=== PATIENT | female | born 1965 | race Caucasian/White ===

== ENCOUNTER → 2016-12-20 | Outpatient (REF) | payer BC ==
[2016-12-23 00:07] LABS: Lyme Disease IgG/IgM Antibodie <0.91 ISR (0.00-0.90); Lyme Disease IgM Ab Quantitati <0.80 index (0.00-0.79)
== END ==
LOC: M SFHCLERA 14:58
PROVIDERS: ATTEND Nurse Practitioner Family
DX: L53.9 Erythematous condition, unspecified (principal)

== ENCOUNTER → 2017-12-02 | Outpatient (CLI) | payer BC | LOC: M WHC 09:47 | DX: Z12.31 Encounter for screening mammogram for malignant neoplasm of breast (principal) | CPT/HCPCS: 77067 ==

== ENCOUNTER → 2017-12-02 | Outpatient (REF) | payer BC | LOC: M SFHCWAGY 09:46 | DX: Z12.4 Encounter for screening for malignant neoplasm of cervix (principal) | CPT/HCPCS: G0123 ==

== ENCOUNTER → 2019-01-30 | Outpatient (CLI) | payer BC ==
--- NOTE | 2019-01-30 16:49 | REPMRS ---
Patient History The patient states she had a clinical breast exam in 01/2019. Family history of prostate cancer at age 50 or over in father, prostate cancer under age 50 in brother, breast cancer at age 50 or over in paternal aunt, breast cancer at age 50 or over in paternal aunt, ovarian cancer at age 25 in paternal aunt. Benign excisional biopsy of the left breast, 1990. Taking hormonal contraceptives for 16 years. Digital Woman Screen Mammo: January 30, 2019 - Exam #: [id number] Bilateral CC and MLO view(s) were taken. Technologist: Tiffanie Mcintosh, Technologist Prior study comparison: December 02, 2017, digital woman screen mammo performed at [facility]. FINDINGS: There are scattered fibroglandular densities. There has been no change in the appearance of the mammogram from the prior studies. There is a mild amount of scattered fibroglandular density which is fairly symmetric. There is no interval development of dominant mass, architectural distortion, or grouped microcalcification suggestive of malignancy. 3-D tomosynthesis shows no additional findings. Assessment: BI-RADS/ACR category 1 mammogram. Negative Mammogram. Recommendation Routine screening mammogram of both breasts in 1 year (for women over age 40). This patient's Lifetime Breast Cancer Risk is estimated at 13.5 %. This mammogram was interpreted with the aid of an FDA-approved computer-aided dectection system. Electronically Signed By: Buster Lawson MD 01/30/19 [id number]
== END ==
LOC: M WHC 14:36
PROVIDERS: ATTEND Nurse Practitioner Women's Health
DX: Z12.31 Encounter for screening mammogram for malignant neoplasm of breast (principal); Z15.09 Genetic susceptibility to other malignant neoplasm

== ENCOUNTER → 2019-04-24 | Outpatient (REF) | payer BC | LOC: M SFHCWAGY 15:02 | PROVIDERS: ATTEND Nurse Practitioner Women's Health | DX: Z15.09 Genetic susceptibility to other malignant neoplasm (principal); Z80.41 Family history of malignant neoplasm of ovary ==

== ENCOUNTER → 2019-04-24 | Outpatient (CLI) | payer BC ==
--- NOTE | 2019-04-24 16:53 | REP ---
Transvaginal pelvic sonography: History: Genetic susceptibility to malignant neoplasm. Family history of ovarian carcinoma. Findings: Uterine dimensions are normal at 6.8 x 2.4 x 3.9 cm. Endometrial echo 0.3 cm thick. No focal uterine mass is seen. Normal ovaries are observed bilaterally. Right ovarian dimensions are 1.8 x 2.1 x 1.7 cm. Left ovary measures 1.9 x 1.0 x 2.4 cm. No free fluid is seen. Doppler flow is normal in both ovaries. Resistive indices are 0.67 on the right and 0.53 on the left. Impression: No abnormality noted.
== END ==
LOC: M WHC 15:01
PROVIDERS: ATTEND Nurse Practitioner Women's Health
DX: Z15.09 Genetic susceptibility to other malignant neoplasm (principal); Z80.41 Family history of malignant neoplasm of ovary

== ENCOUNTER → 2020-04-29 | Outpatient (CLI) | payer BC ==
--- NOTE | 2020-04-29 15:48 | REPMRS ---
Patient History The patient states she had a clinical breast exam in April 2020. Family history of prostate cancer at age 50 or over in father, prostate cancer under age 50 in brother, breast cancer at age 50 or over in paternal aunt, breast cancer at age 50 or over in paternal aunt, ovarian cancer at age 25 in paternal aunt. Benign excisional biopsy of the left breast, 1990. Taking hormonal contraceptives for 17 years. Digital Woman Screen Mammo: April 29, 2020 - Exam #: [id number] Bilateral CC and MLO view(s) were taken. Technologist: RT Juancarlos Prior study comparison: January 30, 2019, bilateral digital woman screen mammo performed at [facility]. December 02, 2017, digital woman screen mammo performed at [facility]. FINDINGS: There are scattered fibroglandular densities. The Volpara volumetric breast density category is:B. There has been no change in the appearance of the mammogram from the prior studies. There is a mild amount of scattered fibroglandular density which is fairly symmetric. There is no interval development of dominant mass, architectural distortion, or grouped microcalcification suggestive of malignancy. 3-D tomosynthesis shows no additional findings. Assessment: BI-RADS/ACR category 1 mammogram. Negative Mammogram. Recommendation Routine screening mammogram of both breasts in 1 year (for women over age 40). This patient's Lifetime Breast Cancer Risk is estimated at 13.2 %. This mammogram was interpreted with the aid of an FDA-approved computer-aided dectection system. Electronically Signed By: Buster Lawson MD 04/29/20 [id number]
== END ==
LOC: M WHC 14:43
PROVIDERS: ATTEND Nurse Practitioner Women's Health
DX: Z12.31 Encounter for screening mammogram for malignant neoplasm of breast (principal); Z79.3 Long term (current) use of hormonal contraceptives

== ENCOUNTER → 2020-07-23 | Outpatient (REF) | payer BC ==
[2020-07-23 13:45] LABS: FOLLICLE STIMULATING HORMONE 82.2 mIU/mL; LUTEINIZING HORMONE 40.7 mIU/mL
== END ==
LOC: M PLALAB 10:42
PROVIDERS: ATTEND Nurse Practitioner Women's Health
DX: N95.1 Menopausal and female climacteric states (principal)

== ENCOUNTER 2021-01-25 12:47 | Emergency (ER) | payer BC ==
[~2021-01-25] VITALS: Ht 160 cm; Wt 68.2 kg
[2021-01-25] MEDS ORDERED: DRAM1CHW PO (13:01)
[2021-01-25] MEDS ORDERED: PRES10CA2 PO (13:01)
[2021-01-25 13:55] LABS: BASO # 0.1 10^3/uL (0.0-0.2); BASO % 0.8 % (0.0-1.0); EOS # 0.1 10^3/uL (0.0-0.5); EOS % 0.8 % (0.0-3.0); HEMATOCRIT 41.7 % (36.0-47.0); HEMOGLOBIN 13.8 g/dl (12.0-15.5); LYMPH # 2.2 10^3/uL (1.5-5.0); LYMPH % 25.4 % (24.0-44.0); MEAN CORPUSCULAR HEMOGLOBIN 31.6 pg (27.0-33.0); MEAN CORPUSCULAR HGB CONC 33.1 g/dl (32.0-36.5); MEAN CORPUSCULAR VOLUME 95.4 fl (80.0-96.0); MONO # 0.8 10^3/uL (0.0-0.8); MONO % 9.3 % (2.0-8.0); NEUTROPHILS # 5.4 10^3/uL (1.5-8.5); NEUTROPHILS % 63.5 % (36.0-66.0); PLATELET COUNT, AUTOMATED 271 10^3/uL (150-450); RED BLOOD COUNT 4.37 10^6/uL (4.00-5.40); WHITE BLOOD COUNT 8.5 10^3/uL (4.0-10.0)
--- NOTE | 2021-01-25 14:18 | REP ---
INDICATION: Syncope COMPARISON: None. TECHNIQUE: Axial noncontrast images from the skull base to the vertex with coronal reformations. This CT examination was performed using the following dose reduction techniques: Automated exposure control, adjustment of mA and/or kv according to the patient's size, and use of iterative reconstruction technique. FINDINGS: The ventricles, sulci, and cisterns are normal in position and appearance. Hurt-white differentiation is maintained. No acute intracranial hemorrhage, mass/mass effect, pathology or trauma/injury. No evidence for acute infarction. No extra-axial fluid collection. Calvarium is intact. Paranasal sinuses and mastoid air cells are clear. IMPRESSION: Normal noncontrast head CT. No evidence for acute intracranial pathology or trauma/injury. <Electronically signed by Kalia Booker > 01/25/21 [id number]
[2021-01-25 14:30] LABS: BLOOD UREA NITROGEN 11 MG/DL (7-18); CALCIUM LEVEL 8.7 MG/DL (8.5-10.1); CARBON DIOXIDE LEVEL 27 MEQ/L (21-32); CHLORIDE LEVEL 109 MEQ/L (98-107); CREATININE FOR GFR 0.58 MG/DL (0.55-1.30); GLOMERULAR FILTRATION RATE > 60.0 (>51); GLUCOSE, FASTING 90 MG/DL (70-100); SODIUM LEVEL 144 MEQ/L (136-145); THYROID STIMULATING HORMONE 0.976 uIU/ML (0.358-3.740)
[2021-01-25 14:31] LABS: POTASSIUM SERUM 4.7 MEQ/L (3.5-5.1)
[2021-01-25] MEDS ORDERED: MECLIZINE 25 MG TABLET PO ONE (15:40)
--- NOTE | 2021-01-25 17:10 | REPVR ---
PROCEDURE INFORMATION: Exam: MRA Head Without Contrast; Arteriography Exam date and time: 01/25/2021 4:01 PM Age: 56 years old Clinical indication: Dizziness and giddiness; Patient HX: Nausea dizziness, vomitting, >3weeks that comes and goes, nki. No priors sent to [facility] TECHNIQUE: Imaging protocol: Magnetic resonance angiography head without contrast. Exam focused on the arteries. COMPARISON: CT Head without contrast 01/25/2021 2:04 PM FINDINGS: ANTERIOR CIRCULATION: Right internal carotid artery: Intracranial segment is patent with no significant stenosis. No aneurysm. Right middle cerebral artery: No occlusion or significant stenosis. No aneurysm. Right anterior cerebral artery: No occlusion or significant stenosis. No aneurysm. Left internal carotid artery: Intracranial segment is patent with no significant stenosis. No aneurysm. Left middle cerebral artery: No occlusion or significant stenosis. No aneurysm. Left anterior cerebral artery: No occlusion or significant stenosis. No aneurysm. POSTERIOR CIRCULATION: Right vertebral artery: No occlusion or significant stenosis. No aneurysm. Left vertebral artery: No occlusion or significant stenosis. No aneurysm. Basilar artery: No occlusion or significant stenosis. No aneurysm. Right posterior cerebral artery: No occlusion or significant stenosis. No aneurysm. Left posterior cerebral artery: No occlusion or significant stenosis. No aneurysm. IMPRESSION: No stenosis or occlusion. Electronically signed by: Lissa Ambrose On 01/25/2021 17:10:16 PM
--- NOTE | 2021-01-25 17:17 | REPVR ---
PROCEDURE INFORMATION: Exam: MR Head Without Contrast Exam date and time: 01/25/2021 4:01 PM Age: 56 years old Clinical indication: Patient HX: Nausea dizziness, vomiting, >3weeks that comes and goes, nki. No priors sent to [facility] TECHNIQUE: Imaging protocol: MR of the head without contrast. COMPARISON: CT Head without contrast 01/25/2021 2:04 PM FINDINGS: Brain: There is questionably increased T2/FLAIR hyperintensity within the right inferomedial frontal lobe. There are minimally increased T2/FLAIR white matter hyperintensities, nonspecific but typically small-vessel ischemia in this age group. There is no diffusion restriction. Cerebral ventricles: Normal. No ventriculomegaly. Bones/joints: Unremarkable. Paranasal sinuses: There is opacification of the left maxillary sinus. Mastoid air cells: Normal as visualized. No mastoid effusion. Orbital cavity: Unremarkable. Soft tissues: Unremarkable. IMPRESSION: Suggestion of abnormally increased T2/FLAIR hyperintensity within the right inferior frontal lobe. Repeat imaging with gadolinium is recommended for further evaluation. Thin-section imaging in axial, coronal and sagittal planes is recommended. Electronically signed by: Lissa mAbrose On 01/25/2021 17:16:59 PM
--- NOTE | 2021-01-25 22:40 | REPVR ---
PROCEDURE INFORMATION: Exam: MR Head With Contrast Exam date and time: 01/25/2021 9:30 PM Age: 56 years old Clinical indication: Abnormal findings; Abnormal radiologic findings of head/skull; Intracranial mass/space-occupying lesion; Patient HX: [facility]; Additional info: Further evaluate front lobe findings; Dizziness TECHNIQUE: Imaging protocol: MR of the head with intravenous contrast. Contrast material: PROHANCE; Contrast volume: 13 ml; Contrast route: INTRAVENOUS (IV); COMPARISON: MRI-Brain without Contrast 01/25/2021 3:42 PM FINDINGS: Brain: This examination is limited to multiplanar T1 postcontrast images. There is a right inferior frontal extra-axial enhancing mass along the planum sphenoidale. This enhances homogeneously. Measurements are 12 x 13 by 9 mm. There is also a small nodule of enhancement as seen on axial image 12 and sagittal image 13 adjacent to the left anterior clinoid. It measures 5 mm in diameter. No intra-axial enhancing lesion is identified. Cerebral ventricles: Normal. No ventriculomegaly. Bones/joints: Unremarkable. Paranasal sinuses: Normal as visualized. No acute sinusitis. Mastoid air cells: Normal as visualized. No mastoid effusion. Orbital cavity: Unremarkable. Soft tissues: Unremarkable. IMPRESSION: 1. 12 x 13 x 9 mm right inferior frontal enhancing extra-axial mass along the planum sphenoidale most consistent with a meningioma. 2. 5 mm nodule of enhancement adjacent to the left anterior clinoid, probably a small meningioma. 3. Recommend long-term follow-up to exclude any increase in size. Electronically signed by: Donavan Wynne On 01/25/2021 22:39:35 PM
[2021-01-25 22:45] VITALS: BP 126/83
[2021-01-25] MEDS ORDERED: MECL1TAB31 PO (23:00)
--- NOTE | 2021-01-26 21:15 | ECGEPIP ---
[facility] - ED Test Date: 2021-01-25 Pat Name: RONNI TITUS Department: Room: - Gender: Female [employer]: ABIGAIL : 1965 Requested By: Lisa Belcher Order Number: [id number] Reading MD: Lisa Belcher Measurements Intervals Geff Rate: 78 P: 40 OR: 128 QRS: 11 QRSD: 86 T: 24 QT: 396 QTc: 451 Interpretive Statements Normal sinus rhythm No prior Electronically Signed on 01-26-2021 21:14:44 EDT by Lisa Belcher
== END 2021-01-25 23:10 | disposition home or self-care (01) ==
LOC: M ED 12:47
DX: D32.0 Benign neoplasm of cerebral meninges (principal); R42 Dizziness and giddiness; Z79.899 Other long term (current) drug therapy

== ENCOUNTER → 2021-04-09 | Outpatient (CLI) | payer BC ==
[~2021-04-09] MED LIST: DRAM1CHW PO; MECL1TAB31 PO; PRES10CA2 PO
[2021-04-09 15:00] LABS: BASO # 0.1 10^3/uL (0.0-0.2); BASO % 1.2 % (0.0-1.0); EOS # 0.2 10^3/uL (0.0-0.5); EOS % 2.6 % (0.0-3.0); HEMATOCRIT 40.9 % (36.0-47.0); HEMOGLOBIN 13.7 g/dl (12.0-15.5); LYMPH # 2.6 10^3/uL (1.5-5.0); LYMPH % 30.7 % (24.0-44.0); MEAN CORPUSCULAR HEMOGLOBIN 32.2 pg (27.0-33.0); MEAN CORPUSCULAR HGB CONC 33.5 g/dl (32.0-36.5); MONO # 0.9 10^3/uL (0.0-0.8); NEUTROPHILS # 4.6 10^3/uL (1.5-8.5); NEUTROPHILS % 54.4 % (36.0-66.0); PLATELET COUNT, AUTOMATED 281 10^3/uL (150-450); RED BLOOD COUNT 4.26 10^6/uL (4.00-5.40); WHITE BLOOD COUNT 8.5 10^3/uL (4.0-10.0)
[2021-04-09 15:22] LABS: HEMOGLOBIN A1c 5.4 %
[2021-04-09 15:31] LABS: ALBUMIN 3.5 GM/DL (3.2-5.2); ALT/SGPT 17 U/L (12-78); BILIRUBIN,TOTAL 0.4 MG/DL (0.2-1.0); BLOOD UREA NITROGEN 15 MG/DL (7-18); CALCIUM LEVEL 8.7 MG/DL (8.5-10.1); CARBON DIOXIDE LEVEL 29 MEQ/L (21-32); CHLORIDE LEVEL 107 MEQ/L (98-107); CHOLESTEROL LEVEL 187 MG/DL (<200); CHOLESTEROL RISK RATIO 3.169 (<5); CREATININE FOR GFR 0.72 MG/DL (0.55-1.30); FREE T4 0.79 NG/DL (0.76-1.46); GLOMERULAR FILTRATION RATE > 60.0 (>51); GLUCOSE, FASTING 104 MG/DL (70-100); HDL CHOLESTEROL 59 MG/DL (>40); LDL CHOLESTEROL 102 MG/DL (<100); NON-HDL-C 128 MG/DL; POTASSIUM SERUM 3.8 MEQ/L (3.5-5.1); SODIUM LEVEL 142 MEQ/L (136-145); THYROID STIMULATING HORMONE 0.705 uIU/ML (0.358-3.740); TOTAL PROTEIN 6.3 GM/DL (6.4-8.2); TRIGLYCERIDES LEVEL 130 MG/DL (<150)
== END ==
LOC: M PLALAB 12:47
PROVIDERS: ATTEND Student in an Organized Health Care Education/Training Program
DX: Z13.1 Encounter for screening for diabetes mellitus (principal)

== ENCOUNTER → 2023-04-28 | Outpatient (CLI) | payer BC ==
[~2023-04-28] MED LIST changes: +MECL-209 PO; -MECL1TAB31 PO
== END ==
LOC: M PLAIMG 14:54
PROVIDERS: ATTEND Neurological Surgery
DX: D32.9 Benign neoplasm of meninges, unspecified (principal)

== ENCOUNTER → 2024-04-08 | Outpatient (REF) | payer BC | LOC: M WUC 11:38 | PROVIDERS: ATTEND Registered Nurse | DX: N39.0 Urinary tract infection, site not specified (principal) ==

== ENCOUNTER → 2024-08-27 | Outpatient (CLI) | payer BC | LOC: M PLAIMG 10:42 | PROVIDERS: ATTEND Student in an Organized Health Care Education/Training Program | DX: D32.9 Benign neoplasm of meninges, unspecified (principal); G93.6 Cerebral edema; J32.0 Chronic maxillary sinusitis; J32.2 Chronic ethmoidal sinusitis ==

== ENCOUNTER → 2024-11-05 | Outpatient (CLI) | payer BC ==
[~2024-11-05] MED LIST changes: +PROHANCE 279.3MG/ML 15ML VIAL As Ordered ONE
== END ==
LOC: M RAD 12:11
PROVIDERS: ATTEND Nurse Practitioner Family
DX: D32.9 Benign neoplasm of meninges, unspecified (principal)
CPT/HCPCS: 70553; A9576

== ENCOUNTER → 2025-02-11 | Outpatient (CLI) | payer BC ==
[~2025-02-11] MED LIST changes: -PROHANCE 279.3MG/ML 15ML VIAL As Ordered ONE; +PROHANCE 279.3MG/ML 15ML VIAL ONE
== END ==
LOC: M PLAIMG 08:22
PROVIDERS: ATTEND Neurological Surgery
DX: D32.0 Benign neoplasm of cerebral meninges (principal); G93.6 Cerebral edema
CPT/HCPCS: 70553; A9576

== ENCOUNTER → 2025-05-28 | Outpatient (CLI) | payer BC ==
[~2025-05-28] MED LIST changes: +PROHANCE 279.3MG/ML 15ML VIAL As Ordered ONE; -PROHANCE 279.3MG/ML 15ML VIAL ONE
== END ==
LOC: M RAD 15:20
PROVIDERS: ATTEND Radiology Radiation Oncology
DX: D32.9 Benign neoplasm of meninges, unspecified (principal)
CPT/HCPCS: 70553; A9579